=== PATIENT | male | born 1985 | race African-American/Black ===

== ENCOUNTER 2017-08-04 01:45 | Emergency (ER) | payer MEDICAID, OTHER ==
[~2017-08-04] VITALS: Ht 167.6 cm; Wt 70.0 kg
[~2017-08-04 01:45] MED LIST: METO10TA PO
[2017-08-04 01:50] VITALS: BP 132/90; PULSE 69; RESP 16; TEMP 98.1; O2SAT 98
--- NOTE | 2017-08-04 01:56 | PD ---
HPI Chief Complaint: Psychiatric Symptoms Time Seen by Provider: 01:53 Travel History International Travel<30 days: No Contact w/Intl Traveler<30days: No Traveled to known affect area: No History of Present Illness HPI 31-year-old male presents under Aguilar act initiated by the Police Department. According to his paperwork the patient's sister told the police that he was having hallucinations. He believes that he has been recorded in his home. He also threatened to burn down his home. Symptom onset unknown. Symptoms are moderate with no obvious aggravating or relieving factors. He reports that he believes that the Police Department is trying to record him inside of his home because of some sort of previous issue with him spanking his child. He denies any drug use. He admits to drinking beer tonight. He has no other complaints at this time. [facility] Past Medical History Diminished Hearing: No Social History Alcohol Use: Yes Tobacco Use: Yes Substance Use: No Allergies-Medications (Allergen,Severity, Reaction): Coded Allergies: No Known Allergies (Unverified , 05/19/15) Reported Meds & Prescriptions Reported Meds & Active Scripts Active No Active Prescriptions or Reported Medications Review of Systems Except as stated in HPI: all other systems reviewed are Neg Physical Exam Narrative GENERAL: Well-developed well-nourished male in no acute distress SKIN: Warm and dry. HEAD: Atraumatic. Normocephalic. EYES: Pupils equal and round. No scleral icterus. No injection or drainage. ENT: No nasal bleeding or discharge. Mucous membranes pink and moist. NECK: Trachea midline. No JVD. CARDIOVASCULAR: Regular rate and rhythm. No murmur appreciated. RESPIRATORY: No accessory muscle use. Clear to auscultation. Breath sounds equal bilaterally. GASTROINTESTINAL: Abdomen soft, non-tender, nondistended. Hepatic and splenic margins not palpable. MUSCULOSKELETAL: No obvious deformities. No clubbing. No cyanosis. No edema. NEUROLOGICAL: Awake and alert. No obvious cranial nerve deficits. Motor grossly within normal limits. Normal speech. Data Data Last Documented VS Vital Signs Date Time Temp Pulse Resp B/P (MAP) Pulse Ox O2 Delivery O2 Flow Rate FiO2 08/04/17 01:50 98.1 69 16 132/90 (104) 98 Orders Orders Complete Blood Count With Diff (08/04/17 01:54) Comprehensive Metabolic Panel (08/04/17 01:54) Thyroid Stimulating Hormone (08/04/17 01:54) Psych Screen (08/04/17 01:54) Drug Screen, Random Urine (08/04/17 01:54) Alcohol (Ethanol) (08/04/17 01:54) Olanzapine Inj (Zyprexa Inj) (08/04/17 02:00) Labs Laboratory Tests Test 08/04/17 01:55 White Blood Count 11.5 TH/MM3 Red Blood Count 5.26 MIL/MM3 Hemoglobin 15.8 GM/DL Hematocrit 46.7 % Mean Corpuscular Volume 88.8 FL Mean Corpuscular Hemoglobin 30.1 PG Mean Corpuscular Hemoglobin Concent 33.9 % Red Cell Distribution Width 13.8 % Platelet Count 261 TH/MM3 Mean Platelet Volume 8.9 FL Neutrophils (%) (Auto) 64.6 % Lymphocytes (%) (Auto) 24.9 % Monocytes (%) (Auto) 6.8 % Eosinophils (%) (Auto) 2.3 % Basophils (%) (Auto) 1.4 % Neutrophils # (Auto) 7.5 TH/MM3 Lymphocytes # (Auto) 2.9 TH/MM3 Monocytes # (Auto) 0.8 TH/MM3 Eosinophils # (Auto) 0.3 TH/MM3 Basophils # (Auto) 0.2 TH/MM3 CBC Comment DIFF FINAL Differential Comment Blood Urea Nitrogen 11 MG/DL Creatinine 1.08 MG/DL Random Glucose 88 MG/DL Total Protein 8.1 GM/DL Albumin 4.3 GM/DL Calcium Level 8.3 MG/DL Alkaline Phosphatase 99 U/L Aspartate Amino Transf (AST/SGOT) 20 U/L Alanine Aminotransferase (ALT/SGPT) 24 U/L Total Bilirubin 0.3 MG/DL Sodium Level 140 MEQ/L Potassium Level 3.6 MEQ/L Chloride Level 108 MEQ/L Carbon Dioxide Level 21.0 MEQ/L Anion Gap 11 MEQ/L Estimat Glomerular Filtration Rate 95 ML/MIN Thyroid Stimulating Hormone 3rd Gen 1.620 uIU/ML Urine Opiates Screen NEG Urine Barbiturates Screen NEG Urine Amphetamines Screen NEG Urine Benzodiazepines Screen NEG Urine Cocaine Screen NEG Urine Cannabinoids Screen POS Ethyl Alcohol Level 85 MG/DL MDM Medical Decision Making Medical Screen Exam Complete: Yes Emergency Medical Condition: Yes Medical Record Reviewed: Yes Differential Diagnosis Acute psychosis, schizophrenia, substance-induced mood disorder, adjustment reaction, bipolar disorder Narrative Course Mental health screening discussed with the patient. Psychiatric screen ordered. Lab work is been reviewed, drug screen positive for cannabinoids, alcohol level is 85. The patient is medically cleared. Diagnosis Primary Impression: Medical clearance for psychiatric admission Scripts No Active Prescriptions or Reported Meds Eduardo Key Aug 04, 2017 01:56
[2017-08-04] MEDS ORDERED: OLANZapine IM 10 MG VIAL IM ONE (02:00)
[2017-08-04 02:21] LABS: AUTOMATED NEUTROPHIL # 7.5 TH/MM3 (1.8-7.7); BASOPHIL # 0.2 TH/MM3 (0-0.2); BASOPHIL % 1.4 % (0.0-2.0); EOSINOPHIL # 0.3 TH/MM3 (0-0.4); EOSINOPHIL % 2.3 % (0.0-4.0); HEMATOCRIT 46.7 % (39.0-51.0); HEMOGLOBIN 15.8 GM/DL (13.0-17.0); LYMPH % 24.9 % (9.0-44.0); LYMPHOCYTE # 2.9 TH/MM3 (1.0-4.8); MEAN CELL VOLUME 88.8 FL (80.0-100.0); MEAN CORPUSCULAR HEMOGLOBIN 30.1 PG (27.0-34.0); MEAN CORPUSCULAR HGB CONC 33.9 % (32.0-36.0); MEAN PLATELET VOLUME 8.9 FL (7.0-11.0); MONO % 6.8 % (0.0-8.0); MONOCYTE # 0.8 TH/MM3 (0-0.9); NEUT % 64.6 % (16.0-70.0); PLATELET COUNT 261 TH/MM3 (150-450); RED BLOOD COUNT 5.26 MIL/MM3 (4.50-5.90); RED CELL DISTRIBUTION WIDTH 13.8 % (11.6-17.2); WHITE BLOOD COUNT 11.5 TH/MM3 (4.0-11.0)
[2017-08-04 02:38] LABS: ALBUMIN 4.3 GM/DL (3.4-5.0); ALT (GPT) 24 U/L (12-78); AST (GOT) 20 U/L (15-37); BLOOD UREA NITROGEN 11 MG/DL (7-18); CALCIUM 8.3 MG/DL (8.5-10.1); CHLORIDE 108 MEQ/L (98-107); CREATININE 1.08 MG/DL (0.60-1.30); GLOMERULAR FILTRATION RATE 95 ML/MIN (>89); GLUCOSE,RANDOM 88 MG/DL (74-106); SODIUM (NA) 140 MEQ/L (136-145)
[2017-08-04 02:48] LABS: ALKALINE PHOSPHATASE 99 U/L (45-117); TOTAL BILIRUBIN ADULT 0.3 MG/DL (0.2-1.0); TOTAL PROTEIN 8.1 GM/DL (6.4-8.2)
--- NOTE | 2017-08-04 11:53 | PD ---
Physical Exam Date Seen by Provider: Aug 04, 2017 Time Seen by Provider: 11:51 Data Data Last Documented VS Vital Signs Date Time Temp Pulse Resp B/P (MAP) Pulse Ox O2 Delivery O2 Flow Rate FiO2 08/04/17 01:50 98.1 69 16 132/90 (104) 98 Orders Orders Complete Blood Count With Diff (08/04/17 01:54) Comprehensive Metabolic Panel (08/04/17 01:54) Thyroid Stimulating Hormone (08/04/17 01:54) Psych Screen (08/04/17 01:54) Drug Screen, Random Urine (08/04/17 01:54) Alcohol (Ethanol) (08/04/17 01:54) Olanzapine Inj (Zyprexa Inj) (08/04/17 02:00) Diet Regular Basic (08/04/17 Breakfast) Labs Laboratory Tests Test 08/04/17 01:55 White Blood Count 11.5 TH/MM3 Red Blood Count 5.26 MIL/MM3 Hemoglobin 15.8 GM/DL Hematocrit 46.7 % Mean Corpuscular Volume 88.8 FL Mean Corpuscular Hemoglobin 30.1 PG Mean Corpuscular Hemoglobin Concent 33.9 % Red Cell Distribution Width 13.8 % Platelet Count 261 TH/MM3 Mean Platelet Volume 8.9 FL Neutrophils (%) (Auto) 64.6 % Lymphocytes (%) (Auto) 24.9 % Monocytes (%) (Auto) 6.8 % Eosinophils (%) (Auto) 2.3 % Basophils (%) (Auto) 1.4 % Neutrophils # (Auto) 7.5 TH/MM3 Lymphocytes # (Auto) 2.9 TH/MM3 Monocytes # (Auto) 0.8 TH/MM3 Eosinophils # (Auto) 0.3 TH/MM3 Basophils # (Auto) 0.2 TH/MM3 CBC Comment DIFF FINAL Differential Comment Blood Urea Nitrogen 11 MG/DL Creatinine 1.08 MG/DL Random Glucose 88 MG/DL Total Protein 8.1 GM/DL Albumin 4.3 GM/DL Calcium Level 8.3 MG/DL Alkaline Phosphatase 99 U/L Aspartate Amino Transf (AST/SGOT) 20 U/L Alanine Aminotransferase (ALT/SGPT) 24 U/L Total Bilirubin 0.3 MG/DL Sodium Level 140 MEQ/L Potassium Level 3.6 MEQ/L Chloride Level 108 MEQ/L Carbon Dioxide Level 21.0 MEQ/L Anion Gap 11 MEQ/L Estimat Glomerular Filtration Rate 95 ML/MIN Thyroid Stimulating Hormone 3rd Gen 1.620 uIU/ML Urine Opiates Screen NEG Urine Barbiturates Screen NEG Urine Amphetamines Screen NEG Urine Benzodiazepines Screen NEG Urine Cocaine Screen NEG Urine Cannabinoids Screen POS Ethyl Alcohol Level 85 MG/DL MDM Supervised Visit with YONATHAN: No Narrative Course 31-year-old male initially brought to the emergency room under Aguilar act. He was evaluated by Eduardo Key PA-C and medically cleared. He was then evaluated by the psychiatric screener, Linda Pérez and the Aguilar act was lifted. Patient is homeless, he was provided with a packet of outpatient community resources. He is stable and discharged home. Diagnosis Primary Impression: Medical clearance for psychiatric admission Additional Impression: Alcohol-induced mood disorder Referrals: [facility] Additional Instruction: Follow-up with MEGGAN/Leonel Garduno as discussed. Return to the ED for any urgent or emergent medical condition. Scripts No Active Prescriptions or Reported Meds Disposition: 01 DISCHARGE HOME Condition: Stable Rose Gonzalez Aug 04, 2017 11:53
--- NOTE | 2017-08-04 12:23 | PD ---
History of Present Illness Chief Complaint: Psychiatric Symptoms Time Seen by Provider: 11:40 Travel History International Travel<30 Days: No Contact w/Intl Traveler<30days: No Known affected area: No History of Present Illness: Patient is a 31-year-old male who was brought to [place] under a Aguilar act by the [place] [employer]. Aguilar act states, "on July 282017 we responded to [address] in reference to a mentally ill person. I made contact with the sister, Sandra Herrera, the patient, Nils Urbina who advised that Nils was having hallucinations about being recorded while inside of his residence. Sandra stated that Nils threatened to burn down the house and hurt everyone who was listening to him. According to Sandra, Nils suffers from borderline personality disorder. She believes that his recent behavior may cause him to harm someone else. Nils was later taken to custody under the Aguilar act." Nils states that he lives with Sandra ( the mother of his child) and his son. States that Sandra has a drug problem and cleared money form his bank account. He is currently on probation for a previous incident involving his son. The probation is for one year, with a 6 month early release if he complies with the probation. He states that he has been with Sandra for 8 years but that their relationship is deteriorating. He has family in [facility] ,but does not want to involve them in his problems. He also has an ex- and another child , but does not have contact with her. He endorses that he thought that someone installed cameras in the home after the arrest and that is what he was referring to regarding recording him in his home. He endorses not auditory or visual hallucinations at this time. States he did have a beer last night. On arrival alcohol level was 84 and positive for marijuana. Patient has not previous mental health visits at [facility] and has not past mental health history. Chart reviewed and discussed with nurse. Patient in Room D44 in the Emergency Department. Patient is in [facility] and well-groomed. Alert and oriented 4. Patient has good eye contact and attentive to questions that are given to him by this provider. He is cooperative. Speech is normal for volume tone and rhythm. Affect is sad and mood is depressed. Thought processes are normal thought associations relevant abstract thinking concrete no abnormal thought content no perceptual distortions recent and remote memory intact attention and concentration good insight and judgment good denies any suicidal ideations or homicidal ideations. Patient is at low risk for self-harm or harming others. Based on this assessment will with Aguialr act. Patient endorses that he will not be returning home to live with Sandra. Patient was given information on resources locally for the homeless. Dx: Mood disorder, alcohol induced. PFSH Past Medical History Medical History: Denies Significant Hx Diminished Hearing: No Immunizations Current: Yes Tetanus Vaccination: < 5 Years Influenza Vaccination: No Past Surgical History Surgical History: No Previous Surgery Psychiatric History Psychiatric History No past mental health care. Social History Hx Alcohol Use: Yes (OCCASIONAL) Hx Tobacco Use: Yes (1PPD) Hx Substance Use: Yes (CANNABIS) Allergies-Medications (Allergen,Severity, Reaction): Coded Allergies: No Known Allergies (Unverified , 05/19/15) Reported Meds & Prescriptions Reported Meds & Active Scripts Active No Active Prescriptions or Reported Medications Mental Status Examination Appearance: Appropriate Consciousness: Alert Orientation: x4 Motor Activity: Normal gait Speech: Unremarkable Language: Adequate Fund of Knowledge: Adequate Attention and Concentration: Adequate Memory: Unremarkable Mood: Appropriate Affect: Appropriate Thought Process & Associations: Intact Thought Content: Appropriate Hallucination Type: None Delusion Type: None Suicidal Ideation: No Suicidal Plan: No Suicidal Intention: No Homicidal Ideation: No Homicidal Plan: No Homicidal Intention: No Insight: Adequate Judgment: Adequate [facility] Medical Decision Making Medical Record Reviewed: Yes Assessment/Plan Patient is a 31-year-old male who was brought to [place] by Wendy tavares under a Aguilar act. Patient states that his home situation is very stressful. He is currently on probation for 1 year based on an incident with his young son. He has been living with the same person for the past 8 years. He states that she has currently withdrawn money from his account and is participating illicit drugs. He does endorse that he thought that there were cameras in the house and that is what he was referring to when he thought people recording him in his home. He requests information about homeless shelters and homeless resources in the community. He currently has lost his job. He plans to utilize a resource list because he is not going to return back to his residence. He endorses no suicidal or homicidal ideations. He endorses no harm to others or himself. Patient is at low risk for harming himself or others.Aguilar act is lifted. Patient was provided information about [facility] services and given a resource pack, homeless shelters and resources within this community. Orders Orders Complete Blood Count With Diff (08/04/17 01:54) Comprehensive Metabolic Panel (08/04/17 01:54) Thyroid Stimulating Hormone (08/04/17 01:54) Psych Screen (08/04/17 01:54) Drug Screen, Random Urine (08/04/17 01:54) Alcohol (Ethanol) (08/04/17 01:54) Olanzapine Inj (Zyprexa Inj) (08/04/17 02:00) Diet Regular Basic (08/04/17 Breakfast) Ed Discharge Order (08/04/17 11:53) Results Vital Signs Date Time Temp Pulse Resp B/P (MAP) Pulse Ox O2 Delivery O2 Flow Rate FiO2 08/04/17 01:50 98.1 69 16 132/90 (104) 98 Laboratory Tests Test 08/04/17 01:55 White Blood Count 11.5 Red Blood Count 5.26 Hemoglobin 15.8 Hematocrit 46.7 Mean Corpuscular Volume 88.8 Mean Corpuscular Hemoglobin 30.1 Mean Corpuscular Hemoglobin Concent 33.9 Red Cell Distribution Width 13.8 Platelet Count 261 Mean Platelet Volume 8.9 Neutrophils (%) (Auto) 64.6 Lymphocytes (%) (Auto) 24.9 Monocytes (%) (Auto) 6.8 Eosinophils (%) (Auto) 2.3 Basophils (%) (Auto) 1.4 Neutrophils # (Auto) 7.5 Lymphocytes # (Auto) 2.9 Monocytes # (Auto) 0.8 Eosinophils # (Auto) 0.3 Basophils # (Auto) 0.2 CBC Comment DIFF FINAL Differential Comment Blood Urea Nitrogen 11 Creatinine 1.08 Random Glucose 88 Total Protein 8.1 Albumin 4.3 Calcium Level 8.3 Alkaline Phosphatase 99 Aspartate Amino Transf (AST/SGOT) 20 Alanine Aminotransferase (ALT/SGPT) 24 Total Bilirubin 0.3 Sodium Level 140 Potassium Level 3.6 Chloride Level 108 Carbon Dioxide Level 21.0 Anion Gap 11 Estimat Glomerular Filtration Rate 95 Thyroid Stimulating Hormone 3rd Gen 1.620 Urine Opiates Screen NEG Urine Barbiturates Screen NEG Urine Amphetamines Screen NEG Urine Benzodiazepines Screen NEG Urine Cocaine Screen NEG Urine Cannabinoids Screen POS Ethyl Alcohol Level 85 Diagnosis Primary Impression: Alcohol-induced mood disorder Referrals: [facility] Departure Forms: Tests/Procedures Patient Instructions: General Instructions Additional Instructions: Follow-up with MEGGAN/[facility] Garduno as discussed. Return to the ED for any urgent or emergent medical condition. Prescriptions No Active Prescriptions or Reported Meds Disposition: 01 DISCHARGE HOME Condition: Stable Linda Pérez Aug 04, 2017 12:23
== END 2017-08-04 12:20 | disposition home or self-care (01) ==
LOC: NEPD 01:45
DX: F10.94 Alcohol use, unspecified with alcohol-induced mood disorder (principal); Y90.4 Blood alcohol level of 80-99 mg/100 ml; F60.3 Borderline personality disorder; F32.9 Major depressive disorder, single episode, unspecified; F12.90 Cannabis use, unspecified, uncomplicated; Z59.0 Homelessness; Z72.0 Tobacco use
CPT/HCPCS: 80053; 80307; 84443; 85025; 99284